=== PATIENT | male | born 1960 | race Caucasian/White ===

== ENCOUNTER 2017-07-26 10:11 | Emergency (ER) | payer MEDICAID, OTHER ==
[~2017-07-26] VITALS: Ht 177.8 cm; Wt 83.0 kg
[2017-07-26 11:03] VITALS: BP 127/94
== END 2017-07-26 11:55 | disposition home or self-care (01) ==
LOC: ER 10:11
DX: J40 Bronchitis, not specified as acute or chronic (principal); F17.210 Nicotine dependence, cigarettes, uncomplicated
CPT/HCPCS: 71046